=== PATIENT | female | born 1960 | race African-American/Black ===

== ENCOUNTER 2019-05-14 20:51 | Emergency (ER) | payer MEDICARE, MEDICAID ==
[~2019-05-14] VITALS: Ht 165.1 cm; Wt 73.0 kg
[~2019-05-14 20:51] MED LIST: AMLO10TA80 PO; CARV25TA47 PO; CITA10TA9 PO; CLOP75TA33 PO; LOSA100T3 PO; TRAZ-251 PO
[2019-05-14 21:43] LABS: BASOPHILS % 0.7 % (0.0-2.0); EOSINOPHILS % 1.5 % (0.0-5.0); HEMATOCRIT. 36.6 % (36.0-48.0); HEMOGLOBIN. 12.4 g/dL (12.0-16.0); LYMPHOCYTES % 20.1 % (20.0-50.0); MEAN CORPUSCULAR HEMOGLOBIN 30.4 pg (28.0-32.0); MEAN CORPUSCULAR VOLUME 89.8 fL (81.0-99.0); MEAN PLATELET VOLUME 7.8 fl (7.4-10.4); MONOCYTES % 10.1 % (2.0-8.0); NEUTROPHILS % 67.6 % (40.0-76.0); PLATELET 245 x1000/uL (130-400); RED BLOOD CELL COUNT 4.07 mill/uL (4.2-5.4); RED CELL DISTRIBUTION WIDTH 13.3 % (11.6-14.6)
[2019-05-14 21:46] LABS: CHLORIDE 113 mEq/L (98-107)
[2019-05-14] MEDS ORDERED: ACETAMINOPHEN 325MG TABLET PO ONE (22:45)
[2019-05-14 22:48] LABS: CREATINE KINASE 102 IU/L (26-192)
[2019-05-14 23:13] VITALS: BP 123/83
== END 2019-05-14 23:30 | disposition home or self-care (01) ==
LOC: ER 20:51
DX: S09.8XXA Other specified injuries of head, initial encounter (principal); W01.0XXA Fall on same level from slipping, tripping and stumbling without subsequent striking against object, initial encounter; Y93.89 Activity, other specified; Y92.012 Bathroom of single-family (private) house as the place of occurrence of the external cause; I69.393 Ataxia following cerebral infarction; I10 Essential (primary) hypertension; Z79.899 Other long term (current) drug therapy
CPT/HCPCS: 36415; 71045; 82550; 83880; 84484; 93005; 99284

== ENCOUNTER 2019-05-19 09:02 | Emergency (ER) | payer MEDICARE, MEDICAID ==
[~2019-05-19] VITALS: Ht 172.7 cm; Wt 82.0 kg
[2019-05-19] MEDS ORDERED: SODIUM CHLORIDE 0.9% 1,000 ML IV ONE (09:53)
[2019-05-19] MEDS ORDERED: ONDANSETRON HCL 4MG/2ML INJ IV STA (09:53)
[2019-05-19] MEDS ORDERED: MORPHINE SULFATE 4 MG/ML CPJ (NOT FOR IM USE) IV STA (09:53)
[2019-05-19 10:25] LABS: BASOPHILS % 0.7 % (0.0-2.0); EOSINOPHILS % 3.4 % (0.0-5.0); HEMATOCRIT. 38.2 % (36.0-48.0); LYMPHOCYTES % 33.3 % (20.0-50.0); MEAN CORPUSCULAR HEMOGLOBIN 30.4 pg (28.0-32.0); MEAN CORPUSCULAR VOLUME 89.7 fL (81.0-99.0); MEAN PLATELET VOLUME 8.3 fl (7.4-10.4); MONOCYTES % 10.3 % (2.0-8.0); NEUTROPHILS % 52.3 % (40.0-76.0); PLATELET 249 x1000/uL (130-400); RED BLOOD CELL COUNT 4.26 mill/uL (4.2-5.4); RED CELL DISTRIBUTION WIDTH 13.2 % (11.6-14.6)
[2019-05-19 10:28] LABS: PARTIAL THROMBOPLASTIN TIME 26.6 sec (23.4-31.0); PROTHROMBIN TIME 10.7 sec (9.6-11.0)
[2019-05-19 10:31] LABS: CHLORIDE 108 mEq/L (98-107)
[2019-05-19] MEDS ORDERED: IOHEXOL-300 100 ML BOTTLE ONE (11:32)
[2019-05-19] MEDS ORDERED: ACETAMINOPHEN 325MG TABLET PO ONE (12:15)
[2019-05-19 13:13] VITALS: BP 132/78
== END 2019-05-19 13:15 | disposition home or self-care (01) ==
LOC: ER 09:02
DX: R07.89 Other chest pain (principal); R55 Syncope and collapse; I10 Essential (primary) hypertension; Z86.73 Personal history of transient ischemic attack (TIA), and cerebral infarction without residual deficits; Z79.899 Other long term (current) drug therapy; W01.198A Fall on same level from slipping, tripping and stumbling with subsequent striking against other object, initial encounter; Y93.89 Activity, other specified; Y92.89 Other specified places as the place of occurrence of the external cause; Y99.8 Other external cause status
CPT/HCPCS: 36415; 71045; 71260; 80053; 83880; 84484; 85025; 85610; 85730; 93005; 99284; J2270; J2405; J7030; Q9967